=== PATIENT | female | born 1995 | race Caucasian/White ===

== ENCOUNTER 2023-03-15 17:26 | Outpatient (CLI) | payer OTHER, SELFPAY ==
[2023-03-15 18:10] LABS: Beta HCG Quantitative < 2.39 mIU/ML
== END 2023-03-15 17:27 | disposition home or self-care (01) ==
PROVIDERS: Visit Provider Student in an Organized Health Care Education/Training Program
DX: Z30.40 Encounter for surveillance of contraceptives, unspecified (principal)
CPT/HCPCS: 36415; 84702

== ENCOUNTER 2023-12-20 16:33 | Outpatient (CLI) | payer OTHER, SELFPAY ==
[2023-12-20 17:05] LABS: Basophils Percent Auto 0.4 % (0.2-1.2); Eosinophils Absolute Auto 0.1 K/mm3 (0-0.3); Eosinophils Percent Auto 0.8 % (0-4.4); Hematocrit 44.5 % (37.0-47.0); Hemoglobin 15.4 g/dL (12.0-15.0); Immature Granulocyte Absolute 0.03 K/mm3 (0.00-0.031); Immature Granulocyte Percent A 0.3 % (0-0.5); Lymphocytes Absolute Auto 2.05 K/mm3 (0.9-3.2); Lymphocytes Percent Auto 22.3 % (18.3-44.2); Mean Corpuscular HGB Conc 34.6 g/dl (32-36); Mean Corpuscular Hemoglobin 32.5 pg (26-34); Mean Corpuscular Volume 93.9 fl (80-100); Mean Platelet Volume 9.4 fl (7.4-10.4); Monocytes Absolute Auto 0.5 K/mm3 (0.1-0.6); Monocytes Percent Auto 5.2 % (2.6-8.5); Neutrophils Absolute Auto 6.5 K/mm3 (1.3-6.7); Platelet Count Result 266 k/mm3 (150-375); Red Blood Count 4.74 M/mm3 (4.2-5.4); Red Cell Distribution Width 11.3 % (11.5-14.5); White Blood Count 9.2 K/mm3 (4.5-10.0)
[2023-12-20 17:55] LABS: HIV 1/2 Ab P24 Ag Result Negative (Negative)
[2023-12-20 18:42] LABS: Hepatitis B Surface Antigen Negative (Negative); Rubella IgG Antibody 17.2 IU/ML
[2023-12-21 07:38] LABS: Rapid Plasma Reagin Non-Reactive (NonReactive)
== END 2023-12-20 16:34 | disposition home or self-care (01) ==
LOC: ANHLAB 16:34
PROVIDERS: Visit Provider Student in an Organized Health Care Education/Training Program
DX: N94.89 Other specified conditions associated with female genital organs and menstrual cycle (principal)
CPT/HCPCS: 36415; 84702; 85025; 86592; 86644; 86703; 86747; 86762; 86787; 86850; 86900; 86901; 87086; 87340; G0432

== ENCOUNTER 2023-12-27 16:45 | Outpatient (CLI) | payer OTHER, SELFPAY | END 2023-12-27 16:46 | disposition home or self-care (01) | LOC: ANHLAB 16:48 | PROVIDERS: Visit Provider Student in an Organized Health Care Education/Training Program | DX: N94.89 Other specified conditions associated with female genital organs and menstrual cycle (principal) | CPT/HCPCS: 36415; 84702 ==

== ENCOUNTER 2023-12-29 12:42 | Outpatient (CLI) | payer OTHER, SELFPAY | END 2023-12-29 12:43 | disposition home or self-care (01) | LOC: ANHLAB 12:43 | PROVIDERS: Visit Provider Student in an Organized Health Care Education/Training Program | DX: N94.89 Other specified conditions associated with female genital organs and menstrual cycle (principal) | CPT/HCPCS: 36415; 84702 ==

== ENCOUNTER 2024-01-04 14:05 | Outpatient (CLI) | payer OTHER, SELFPAY ==
--- NOTE | ~2024-01-04 | US_ITS ---
EXAMINATION: US OB <=14 wk fetus w TV DATE: 01/04/2024 14:40 INDICATION: Establish dating of during first trimester with recent previous miscarriage. TECHNIQUE: Real-time pelvic ultrasound utilizing both a transvaginal and transabdominal probe was pe rformed. The interpreting radiologist was not present for the study. COMPARISON: None. FINDINGS: The uterus measures 7.3 x 3.9 x 3.3 cm. The endometrial complex measures up to 1.3 cm in thickness. T here is an eccentric positioned anechoic fluid collection measuring 1.4 x 0.7 x 0.4 cm positioned solomon ng the anterior margin of the mid to lower uterine segment. There is a 3 mm echogenic focus within th e anechoic fluid potentially representing either a yolk sac or pole. This was not measured by t he building rental superintendent as a potential pole and no Doppler imaging was obtained to assess for hear t motion. There is additional anechoic fluid in the anterior endometrial contents of the lower uterin e segment extending additional 1.9 cm cranial to caudal and appearing to extend into the endocervical canal. The left and right ovaries were not visualized. There is no free fluid in the pelvis. IMPRESSION: 1. 1.4 x 0.7 x 0.4 cm lenticular fluid collection at the anterior margin of the endometrial complex a t the mid to lower uterine segment. There is a 3 mm echogenic focus within the fluid collection poten tially representing a yolk sac or pole although no stone or Doppler imaging was obtained to ass ess for heart motion. Differential would include early, failed or ectopic . Recommend follow-up with serial beta-hCG levels and repeat imaging as clinically indicated. 2. Assuming this represents a gestational sac, the estimated age based upon an 8 mm mean sac diameter would be 5 weeks 4 day(s) +/- 4 day(s) with ultrasound estimated date of delivery ([facility]) of 09/01/2024 . 3. Additional anechoic fluid extending caudally from the base of the fluid collection into the endoce rvical canal which could represent subchorionic hematoma. Reviewed, dictated and finalized at location B. DOOR WORKER IMPRESSION: 1. 1.4 x 0.7 x 0.4 cm lenticular fluid collection at the anterior margin of the endometrial complex at the mid to lower uterine segment. There is a 3 mm echog enic focus within the fluid collection potentially representing a yolk sac or f etal pole although no stone or Doppler imaging was obtained to assess for heart motion. Differential would include early, failed or ectopic . R ecommend follow-up with serial beta-hCG levels and repeat imaging as clinically indicated. 2. Assuming this represents a gestational sac, the estimated age based upon an 8 mm mean sac diameter would be 5 weeks 4 day(s) +/- 4 day(s) with ultrasound e stimated date of delivery ([facility]) of 09/01/2024. 3. Additional anechoic fluid extending caudally from the base of the fluid bernarda ection into the endocervical canal which could represent subchorionic hematoma.
== END 2024-01-04 14:06 | disposition home or self-care (01) ==
PROVIDERS: PCP Student in an Organized Health Care Education/Training Program; Visit Provider Student in an Organized Health Care Education/Training Program
DX: N94.89 Other specified conditions associated with female genital organs and menstrual cycle (principal)
CPT/HCPCS: 76801; 76817

== ENCOUNTER 2024-01-25 17:15 | Outpatient (CLI) | payer OTHER, SELFPAY ==
[2024-01-25 18:09] LABS: Beta HCG Quantitative < 2.39 mIU/ML
== END 2024-01-25 17:16 | disposition home or self-care (01) ==
LOC: ANHLAB 17:16
PROVIDERS: PCP Student in an Organized Health Care Education/Training Program; Visit Provider Student in an Organized Health Care Education/Training Program
DX: O03.9 Complete or unspecified spontaneous abortion without complication (principal)
CPT/HCPCS: 36415; 84702

== ENCOUNTER 2024-10-18 12:14 | Outpatient (CLI) | payer OTHER, SELFPAY ==
--- OUTSIDE RECORDS SUMMARY | 2024-10-18 12:20 | XMS_ITS | Clinical Summary ---
Author Organization [facility] Address [address] [place] [address] Care Team Providers Care Biology Adjunct Instructor Name Role Phone Unavailable Primary Care Provider Unavailabl e Allergies No known active allergies Medications clindamycin phosphate (CLEOCIN) 1 % Solution Apply to affected area 2 times daily. 60 mL 5 09/07/2017 Active Active Problems Problem Noted Date Diagnosed Date Nexplanon in place 09/07/2017 Acne 09/07/2017 Family History Medical History Relation Name Comments Healthy Father Healthy Mother Cancer Neg Hx Diabetes Neg Hx Heart Disease Neg Hx Relation Name Status Comments Father Alive Mother Alive Social History Tobacco Use Types Packs/Day Years Used Date Smoking Tobacco: Former E-Cigarette/Mist Inhalation Device Smokeless Tobacco: Never Alcohol Use Standard Drinks/Week Comments No 0 (1 standard drink = 0.6 oz pur e alcohol) rare 3 times /month Comments No Sex and Gender Information Value Date Recorded Sex Assigned at Not on file Legal Sex Female 12:20 PM CDT Gender Identity Not on file Sexual Orientation Not on file Last Filed Vital Signs Vital Sign Reading Time Taken Comments Blood Pressure 122/73 12/18/2017 12:43 PM TOOLMAKER Pulse 89 12/18/2017 12:43 PM TOOLMAKER Temperature 37 C (98.6 F) 12/18/2017 12:43 PM TOOLMAKER Respiratory Rate - - Oxygen Saturation 100% 12/18/2017 12:43 PM TOOLMAKER Inhaled Oxygen Concentration - - Weight 64.7 kg (142 lb 9.6 oz) 12/18/2017 12:43 PM TOOLMAKER Height 170.2 cm (5' 7) 12/18/2017 12:43 PM TOOLMAKER Body Mass Index 22.33 12/18/2017 12:43 PM TOOLMAKER Plan of Treatment Health Maintenance Due Date Last Done Comments DTAP/TDAP/TD VACCINES (1 - Tdap) 01/05/2016 HEPATITIS B VACCINES (1 of 3 - 19+ 3-dose series) 12/15 CERVICAL CANCER SCREENING 12/18/2020 PAP SMEAR 12/18/2020 12/18/2017 HPV/Cotest (21-29) 12/18/2022 12/18/2017 HPV VACCINES (1 - 3-dose SCDM series) 01/05/2024 INFLUENZA VACCINE (#1) 2024 HPV/Cotest (30-65) 2027 12/18/2017 Procedures Procedure Name Priority Date/Time Associated Diagnosis Comments CERV/VAG CYTO SCREEN PAP RLFX HPV Routine 12/18/2017 1:44 PM TOOLMAKER Cervical cancer screening from Last 3 Months or Most Recently Relevant to Health Maintenance Results * CERV/VAG CYTO SCREEN PAP RLFX HPV (12/18/2017 1:44 PM TOOLMAKER) CLINICAL INFORMATION SEE COMMENT 12/21/2017 12:45 PM TOOLMAKER [facility] Comment:Information not prov ided LAST MENSTRUAL PERIOD 2017121812/21/2017 12:45 PM TOOLMAKER [facility] PREV PAP: SEE COMMENT 12/21/2017 12:45 PM TOOLMAKER [facility] Comment:INFORMATION NOT PROV IDED PREV BX: SEE COMMENT 12/21/2017 12:45 PM TOOLMAKER [facility] Comment:INFORMATION NOT PROV IDED SOURCE Endocervix 12/21/2017 12:45 PM TOOLMAKER [facility] ADEQUACY: SEE COMMENT 12/21/2017 12:45 PM TOOLMAKER [facility] Comment: Satisfactory for evaluation. Endocervical/transformation zone component present. PAP INTERP SEE COMMENT 12/21/2017 12:45 PM TOOLMAKER [facility] Comment:Negative for intraep ithelial lesion or malignancy. COMMENT SEE COMMENT 12/21/2017 12:45 PM TOOLMAKER [facility] Comment: This Pap test has been evaluated with computer assisted technology. INCIDENT MANAGER: SEE COMMENT 2017 12:45 PM TOOLMAKER [facility] Comment:BEF, CT(ASCP) REVIEW INCIDENT MANAGER: SEE COMMENT 12/21/2017 12:45 PM TOOLMAKER [facility] Comment: MLK, CT(ASCP) CT screening location: [place] [address] [place] [address] EXPLANATORY NOTE SEE COMMENT 018 12:45 PM TOOLMAKER [facility] Comment: EXPLANATORY NOTE: The Pap is a screening test for cervical cancer. It is not a diagnostic test and is subject to false negative and false positive results. It is most reliable when a satisfactory sample, regularly obtained, is submitted with relevant clinical findings and history, and when the Pap result is evaluated along with historic and current clinical information. Genital SWAB OF ENDOCERVIX / Unknown Collection / Unknown 12/18/2017 1:44 PM TOOLMAKER 12/18/2017 3:45 PM TOOLMAKER Narrative [facility] - 12/21/2017 12:45 PM TOOLMAKER Performing Organization Information: [facility] ID: [facility] Address: [address] [address] Director: Genevieve Salinas us Lora Lopez MD PATHOLOGY/CYTOLOGY TAMMIE MERRITT Final Result [facility] from Last 3 Months or Most Recently Relevant to Health Maintenance
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
--- OUTSIDE RECORDS SUMMARY | 2024-10-18 12:20 | XMS_ITS | Clinical Summary ---
Author Organization [place] [id number] [place] Address [address] [place] [address] Care Team Providers Care Name Plate Stamping Machine Operator Name Role Phone No, Physician Primary Care Provider [phone] Allergies No known active allergies Medications FLUoxetine (PROzac) 20 mg capsule Take 1 capsule (20 mg total) by mouth daily 01/18/2024 Active FLUoxetine 10 mg capsule Take 1 tablet/capsu le (10 mg total) by mouth daily 11/04/2023 Active Active Problems No known active problems Family History Medical History Relation Name Comments Cancer Maternal Grandfather Relation Name Status Comments Maternal Grandfather Social History Tobacco Use Types Packs/Day Years Used Date Smoking Tobacco: Every Day Vaping Smokeless Tobacco: Current Tobacco Cessation:Ready to Q uit: Not Asked; Counseling Given: Not Answered Personal Safety Answer Date Recorded Have you ever been in or are you currently in a harmful physical or emotional relationship or is someone making you feel afraid or unsafe? 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 FAN ASSEMBLER Gender Identity Not on file Sexual Orientation Not on file Obstetrics History Para Term AB IAB SAB Ectopic Multiple Livin g Live Births 1 0 0 0 1 0 1 0 0 0 0 Date Outcome GA Total Labor Labor/2nd/3rd Weight Sex Type Anes PTL Barbra A1 A5 Name Clin 01/2024 SAB Last Filed Vital Signs Vital Sign Reading Time Taken Comments Blood Pressure 112/58 03/18/2024 2:46 PM ELECTRIC FAN ASSEMBLER Pulse 69 01/18/2024 9:15 PM ELECTRIC FAN ASSEMBLER Temperature 37.3 C (99.2 F) 01/18/2024 2:14 PM ELECTRIC FAN ASSEMBLER Respiratory Rate 18 01/18/2024 9:15 PM ELECTRIC FAN ASSEMBLER Oxygen Saturation 97% 01/18/2024 9:15 PM ELECTRIC FAN ASSEMBLER Inhaled Oxygen Concentration - - Weight 62.6 kg (138 lb) 03/18/2024 2:46 PM ELECTRIC FAN ASSEMBLER Height 170.2 cm (5' 7) 03/18/2024 2:46 PM ELECTRIC FAN ASSEMBLER Body Mass Index 21.61 03/18/2024 2:46 PM ELECTRIC FAN ASSEMBLER Plan of Treatment Health Maintenance Due Date Last Done Comments Cervical Cancer Screening 1997 Depression Screening 1997 Hepatitis C Screening 1997 Varicella Vaccines (2 of 2 - 2-dose childhood series) 2001 04/27/1998 DTaP/Tdap/Td Vaccine (6 - Tdap) 01/05/2008 08/13/2002, 04/27/1998, 1997, Additional history exists Regular Well Visit/Exam 18-64 2015 Pneumococcal vaccine <65 (1 of 2 - PCV) 01/05/2016 HPV Vaccines (1 - 3-dose SCD M series) 01/05/2024 Influenza Vaccine (#1) 2024 01/26/2010 Hepatitis B Screening Completed 01/20/1999 , 1997, 1997 Insurance [employer] OPEN ACCESS [employer] OPEN ACCESS Care Teams Name Plate Stamping Machine Operator Relationship Specialty Start Date End Date No, Physician PCP - General 01/14/24
[2024-10-18 14:15] LABS: Beta HCG Quantitative 15103.00 mIU/ML
== END 2024-10-18 12:15 | disposition home or self-care (01) ==
PROVIDERS: Visit Provider Student in an Organized Health Care Education/Training Program
DX: N91.2 Amenorrhea, unspecified (principal)
CPT/HCPCS: 36415; 84702

== ENCOUNTER 2024-10-21 10:46 | Outpatient (CLI) | payer OTHER, SELFPAY ==
--- NOTE | ~2024-10-21 | US_ITS ---
EXAMINATION: US OB limited DATE: 10/21/2024 11:54 INDICATION: Unplanned with Nexplanon in place . TECHNIQUE: Real-time ultrasound of the pelvis was performed. The interpreting radiologist was not present for the study. COMPARISON: None. FINDINGS: There is a single living fetus in breech presentation. The placenta is anterior and low-lying with caudal margin 3.0 cm from the expected location of the internal cervical os. The a region of the cervix is however suboptimally imaged which limits specificity. heart rate is 145 beats per minute (bpm). The amniotic fluid volume is subjectively normal. The following biometric data were obtained: BPD: 5.4 cm -> 22 weeks 3 days Head circumference: 19.9 cm -> 22 weeks 0 days Abdominal circumference: 18.5 cm -> 21 weeks 2 days Femur length: 3.6 cm -> 21 weeks 4 days These measurements are concordant. Head circumference to abdominal circumference ratio: 1.07 (normal range 1.05-1.22). Estimated weight: 505 g (+/-) 76 g or 1 lbs. 2 oz. (+/-) 3 oz. IMPRESSION: 1. Single living fetus in breech presentation with heart rate of 145 bpm. 2. Gestational age by ultrasound of 22 weeks 2 day(s) +/- 1 week and 4 days with ultrasound estimated date of delivery (HANNAH) of 02/22/2025. Please correlate with clinical information or earlier ultrasounds for most accurate HANNAH. 3. Anterior placenta which appears low-lying with caudal margin 3-5 cm from the expected location of the internal cervical os. The os is however poorly visualized decreasing specificity. Reviewed, dictated and finalized at location A. IMPRESSION: 1. Single living fetus in breech presentation with heart rate of 145 bpm. 2. Gestational age by ultrasound of 22 weeks 2 day(s) +/- 1 week and 4 days wit h ultrasound estimated date of delivery (HANNAH) of 02/22/2025. Please correlate wi th clinical information or earlier ultrasounds for most accurate HANNAH. 3. Anterior placenta which appears low-lying with caudal margin 3-5 cm from the expected location of the internal cervical os. The os is however poorly visual ized decreasing specificity.
--- OUTSIDE RECORDS SUMMARY | 2024-10-21 11:14 | XMS_ITS | Clinical Summary ---
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 Gender Identity Not on file Sexual Orientation [...] Comments Blood Pressure 112/58 03/18/2024 2:46 PM TECHNICAL ACCOUNT EXECUTIVE Pulse 69 01/18/2024 9:15 PM TECHNICAL ACCOUNT EXECUTIVE Temperature 37.3 C (99.2 F) 01/18/2024 2:14 PM TECHNICAL ACCOUNT EXECUTIVE Respiratory Rate 18 01/18/2024 9:15 PM TECHNICAL ACCOUNT EXECUTIVE Oxygen Saturation 97% 01/18/2024 9:15 PM TECHNICAL ACCOUNT EXECUTIVE Inhaled Oxygen Concentration - - Weight 62.6 kg (138 lb) 03/18/2024 2:46 PM TECHNICAL ACCOUNT EXECUTIVE Height 170.2 cm (5' 7) 03/18/2024 2:46 PM TECHNICAL ACCOUNT EXECUTIVE Body Mass Index 21.61 03/18/2024 2:46 PM TECHNICAL ACCOUNT EXECUTIVE Plan of Treatment Health Maintenance Due Date [...] Screening Completed 01/20/1999 , 1997, 1997 Insurance [employer] OPEN ACCESS [employer] OPEN ACCESS Care Teams Air Conditioning Insulation Installer Relationship Specialty Start Date End Date No, Physician PCP - General 01/14/24
--- OUTSIDE RECORDS SUMMARY | 2024-10-21 11:14 | XMS_ITS | Clinical Summary ---
Author Organization [facility] Address [address] [place] [address] Care Team Providers Care Per Diem Physical Therapist Assistant Name Role Phone Unavailable Primary Care Provider [...] Comments Blood Pressure 122/73 12/18/2017 12:43 PM RESEARCH PHARMACIST Pulse 89 12/18/2017 12:43 PM RESEARCH PHARMACIST Temperature 37 C (98.6 F) 12/18/2017 12:43 PM RESEARCH PHARMACIST Respiratory Rate - - Oxygen Saturation 100% 12/18/2017 12:43 PM RESEARCH PHARMACIST Inhaled Oxygen Concentration - - Weight 64.7 kg (142 lb 9.6 oz) 12/18/2017 12:43 PM RESEARCH PHARMACIST Height 170.2 cm (5' 7) 12/18/2017 12:43 PM RESEARCH PHARMACIST Body Mass Index 22.33 12/18/2017 12:43 PM RESEARCH PHARMACIST Plan of Treatment Health Maintenance Due Date [...] PAP RLFX HPV Routine 12/18/2017 1:44 PM RESEARCH PHARMACIST Cervical cancer screening from Last 3 Months or Most Recently Relevant to Health Maintenance Results * CERV/VAG CYTO SCREEN PAP RLFX HPV (12/18/2017 1:44 PM RESEARCH PHARMACIST) CLINICAL INFORMATION SEE COMMENT 12/21/2017 12:45 PM RESEARCH PHARMACIST [facility] Comment:Information not prov ided LAST MENSTRUAL PERIOD 2017121812/21/2017 12:45 PM RESEARCH PHARMACIST [facility] PREV PAP: SEE COMMENT 12/21/2017 12:45 PM RESEARCH PHARMACIST [facility] Comment:INFORMATION NOT PROV IDED PREV BX: SEE COMMENT 12/21/2017 12:45 PM RESEARCH PHARMACIST [facility] Comment:INFORMATION NOT PROV IDED SOURCE Endocervix 12/21/2017 12:45 PM RESEARCH PHARMACIST [facility] ADEQUACY: SEE COMMENT 12/21/2017 12:45 PM RESEARCH PHARMACIST [facility] Comment: Satisfactory for evaluation. Endocervical/transformation zone component present. PAP INTERP SEE COMMENT 12/21/2017 12:45 PM RESEARCH PHARMACIST [facility] Comment:Negative for intraep ithelial lesion or malignancy. COMMENT SEE COMMENT 12/21/2017 12:45 PM RESEARCH PHARMACIST [facility] Comment: This Pap test has been evaluated with computer assisted technology. NIGHT AUDITOR: SEE COMMENT 2017 12:45 PM RESEARCH PHARMACIST [facility] Comment:BEF, CT(ASCP) REVIEW NIGHT AUDITOR: SEE COMMENT 12/21/2017 12:45 PM RESEARCH PHARMACIST [facility] Comment: MLK, CT(ASCP) CT screening location: [place] [address] [place] [address] EXPLANATORY NOTE SEE COMMENT 018 12:45 PM RESEARCH PHARMACIST [facility] Comment: EXPLANATORY NOTE: The [...] Unknown Collection / Unknown 12/18/2017 1:44 PM RESEARCH PHARMACIST 12/18/2017 3:45 PM RESEARCH PHARMACIST Narrative [facility] - 12/21/2017 12:45 PM RESEARCH PHARMACIST Performing Organization Information: Site ID: Name: [facility] Address: [address] [address] Director: Genevieve Salinas us Lora Lopez MD PATHOLOGY/CYTOLOGY TAMMIE MERRITT Final Result [facility] from Last 3 Months or Most Recently Relevant to Health Maintenance
--- OUTSIDE RECORDS SUMMARY | 2024-10-21 11:14 | XMS_ITS | Patient Health Record ---
Author Organization [facility] [place] Address [address] [facility] [address] [place] [address] Care Team Providers Care Sas Clinical Programmer Name Role Phone Bandar Tipton Unavailable [phone] Allergies No Known Allergies Reason For Referral [...] decision-maker Yes Do you have Power of Conduit Worker for Health or Medi brody? 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 [address] [address] 10/30/2023 Bandar Saeed ADHD (attention defi cit hyperactivity disorder) F90.9 [facility] [place] [address] [address] 11/10/2023 Badnar Saeed Obsessive-compulsive disorder, unspecified F42.9 ; Major depressive disorder, recurrent, moderate F33.1 and ADHD, predominantly inattentive type F90.[address] [facility] [address] [address] 01/25/2024 Bandar Saeed Obsessive-compulsive disorder, unspecified F42.9 [facility] [place] [address] [address] 04/01/2024 Bandar Saeed Obsessive-compulsive disorder, unspecified F42.9 ; Major depressive disorder, recurrent, moderate F33.1 and ADHD, predominantly inattentive type F90.0 [facility] [address] [address] 06/03/2024 Bandar Saeed Obsessive-compulsive disorder, unspecified F42.9 ; Major depressive disorder, recurrent, moderate F33.1 ; ADHD, predominantly inattentive type F90.0 ; Encounter for screening for depression Z13.31 and PTSD (post-traumatic stress disorder) F43.10 [facility] [address] [address] 07/01/2024 Bandar Saeed Obsessive-compulsive disorder, unspecified F42.9 ; Major depressive disorder, recurrent, moderate F33.1 ; ADHD, predominantly inattentive type F90.0 ; Encounter for screening for cardiovascular disorders Z13.6 ; Nicotine use Z72.0 ; Encounter for screening for depression Z13.31 and PTSD (post-traumatic stress disorder) F43.10 [facility], [facility] [address] [place] [address] 09/13/2024 Bandar Saeed Major depressive disorder, recurrent, moderate F33.1 ; Obsessive-compulsive disorder, unspecified F42.9 ; ADHD, predominantly inattentive type F90.0 and PTSD (post-traumatic stress disorder) F43.10 [facility], [facility] [address] [place] [address] 12/08/2023 Bandar Saeed Obsessive-compulsive disorder, unspecified F42.9 [facility], [facility] [address] [place] [address] 01/18/2024 Bandar Saeed Obsessive-compulsive disorder, unspecified F42.9 [facility], [facility] [address] [place] [address] [facility]/01[facility] [address] [place] [address] 04/25/2024 Bandar Saeed Obsessive-compulsive disorder, unspecified F42.9 [facility], [facility] [address] [place] [address] 08/12/[address] [facility], [facility] [address] [place] [address] 09/12/2024 [facility] [address] [place] [address] 04/25/2024 Bandar Saeed Obsessive-compulsive disorder, unspecified F42.9 [facility], [facility] [address] [place] [address] 04/25/[address] [facility], [facility] [address] [place] [address] 04/25/[address] [facility], [facility] [address] [place] [address] 04/25/[address] [facility] [address] [place] [address] 09/02/2024 Bandar Tipton Obsessive-compulsive disorder, unspecified F42.9 [...] cleaning. Cold Sore - Plan: - Recommend [id number]-[id number] r topical treatments for cold sore relief. [...] patient's insurance. - Cancel prescription pick-up at [facility]. Follow-up Appointment - Plan: - Schedule [...] PTSD (post-traumatic stress disorder) (ICD-10 - F43.10) 04/01/2024 Other Adjustment Disorder with Mixed Anxiety [...] progress and reevaluate treatment plan as needed. 06/03/2024 Other Papi Carson, female patient with [...] ensure accuracy, there may be errors, including bead cutter inaccuracies and misspellings of medication names. This document should not be considered a verbatim record, and any discrepancies should be verified with the provider. 07/01/2024 Princess Carson, female patient with history [...] ensure accuracy, there may be errors, including bead cutter inaccuracies and misspellings of medication names. This document should not be considered a verbatim record, and any discrepancies should be verified with the provider. Plan Of Treatment Future Test Test Name Order Date ADHD Testing 09/29/2023 Next Appt Details Provider Name:Bandar Tipton , 12/05/2024 04:45:00 PM, [address], [facility] [address], [place], [address], Insurance Providers Payer Name Payer Address Payer Phone Subscriber Number Group Number Insured Name Patient Relationship to Insured Coverage Start Date Coverage End Date Cigna [address] [facility] [address] [id number] VALARIE CARSON Self - patient is the insured Medical (General) History Medical History History ICD Code Problems: Moderate recurrent major depre ssion Obsessive-compulsive disorder , Major depressive disorder Post-traumatic stress disorder
== END 2024-10-21 10:47 | disposition home or self-care (01) ==
LOC: ANHIMG 10:48
PROVIDERS: Visit Provider Student in an Organized Health Care Education/Training Program
DX: O09.899 Supervision of other high risk pregnancies, unspecified trimester (principal); Z3A.00 Weeks of gestation of pregnancy not specified
CPT/HCPCS: 76815